=== PATIENT | female | born 1955 | race Caucasian/White ===

== ENCOUNTER 2023-12-18 08:51 | Day surgery (SDC) | payer MEDICARE ==
[~2023-12-18 08:51] MED LIST: Sodium Chloride 0.9% 10 ML Syringe FLUSH PRN
[2023-12-18] MEDS ORDERED: Midazolam 1 MG/ML 2 ML SDV ONE (08:58)
[2023-12-18] MEDS ORDERED: Lidocaine 1% PF 2 ML SDV ONE ×2 (08:58)
[2023-12-18] MEDS ORDERED: Lidocaine 1% 4 ML ONE (08:58)
[2023-12-18] MEDS ORDERED: Sodium Chloride 0.9% 10 ML Syringe FLUSH SCH (09:00)
[2023-12-18] MEDS: Lactated Ringers 1,000 ML IV SCH (09:10)
[2023-12-18] MEDS ORDERED: Propofol 200 MG/20 ML SDV ONE ×2 (09:13→10:39)
[2023-12-18] MEDS ORDERED: Bacitracin Oint 15 GM Tube ONE (09:36)
[2023-12-18] MEDS: Bupivacaine 0.5% 10 ML SDV ONE (10:55)
[2023-12-18] MEDS: Lidocaine 1% 10 ML MDV ONE (10:55)
[2023-12-18] MEDS: EPINEPHrine 1 MG/ML SDV ONE (10:55)
== END 2023-12-18 12:17 | disposition home or self-care (01) ==
LOC: JD.SDS 08:51
PROVIDERS: ATTEND Surgery
DX: Z12.11 Encounter for screening for malignant neoplasm of colon (principal); K64.4 Residual hemorrhoidal skin tags; K64.0 First degree hemorrhoids; E78.00 Pure hypercholesterolemia, unspecified; Z88.5 Allergy status to narcotic agent; Z79.899 Other long term (current) drug therapy
CPT/HCPCS: 45378; 46250; J0171; J0665; J2250; J2704; J7120; 00811; 46230; A9270-GY; G0105; J3490